=== PATIENT | female | born 1970 | race Caucasian/White ===

== ENCOUNTER 2023-06-30 06:37 | Emergency (ER) | payer OTHER, SELFPAY ==
--- NOTE | ~2023-06-30 | XR_ITS ---
Clinical Indication: Shortness of breath PA and lateral of the chest: Comparison: 02/21/2016 Findings: The lungs are clear, without evidence of focal consolidation or pleural effusion. Cardiome diastinal silhouette is within normal limits. Bones and soft tissues are unremarkable. Impression: Normal chest. Reviewed, dictated and finalized at location . Impression: Normal chest.
[2023-06-30 06:37] VITALS: BP 142/99; TEMP 36.3
--- NOTE | 2023-06-30 06:38 | ECG_ITS ---
Measurements Intervals [place] Rate: 71 P: 47 WA: 124 QRS: 66 QRSD: 74 T: 56 QT: 386 QTc: 422 Interpretive Statements SINUS RHYTHM BASELINE ARTIFACT- I, II, III, AVR, AVL, AVF NORMAL ECG NO PREVIOUS ECG AVAILABLE FOR COMPARISON Electronically Signed On 06-30-2023 7:33:37 CDT by Álvaro Fuentes D.O.
[2023-06-30 06:49] VITALS: PULSE 111
[2023-06-30 06:50] VITALS: O2SAT 98
[2023-06-30 07:06] LABS: Basophils Absolute Auto 0.1 K/mm3 (0.0-0.1); Basophils Percent Auto 0.9 % (0.2-1.2); Eosinophils Absolute Auto 0.2 K/mm3 (0-0.3); Eosinophils Percent Auto 2.3 % (0-4.4); Hemoglobin 13.4 g/dL (12.0-15.0); Immature Granulocyte Absolute 0.03 K/mm3 (0.00-0.031); Immature Granulocyte Percent A 0.4 % (0-0.5); Lymphocytes Absolute Auto 2.13 K/mm3 (0.9-3.2); Lymphocytes Percent Auto 26.7 % (18.3-44.2); Mean Corpuscular HGB Conc 33.5 g/dl (32-36); Mean Corpuscular Hemoglobin 32.8 pg (26-34); Mean Corpuscular Volume 97.8 fl (80-100); Mean Platelet Volume 9.3 fl (7.4-10.4); Monocytes Absolute Auto 0.5 K/mm3 (0.1-0.6); Monocytes Percent Auto 5.6 % (2.6-8.5); Neutrophils Absolute Auto 5.1 K/mm3 (1.3-6.7); Neutrophils Percent Auto 64.1 % (45.5-73.1); Platelet Count Result 261 k/mm3 (150-375); Red Blood Count 4.09 M/mm3 (4.2-5.4); Red Cell Distribution Width 12.3 % (11.5-14.5)
--- NOTE | 2023-06-30 07:10 | ED.SOB ---
HPI - SOB/Dyspnea General Chief Complaint: Shortness of Breath/Dyspnea Stated Complaint: SOB Time Seen by Provider: 06/30/23 07:00 History of Present Illness HPI Narrative: Patient is a 52-year-old female who presents ER with shortness of breath. Patient reports over the last week she has had sinus congestion with sore throat and productive cough. She has been experiencing postnasal drip. She has had sinus pressure. Her PCP put her on azithromycin for 5 days and she has completed the antibiotic course. No fevers or chills or sweats. No chest pain or chest pressure. [place] like she was having an asthma attack earlier and had to use her albuterol. Cough is worse in the morning due to postnasal drip. Related Data Allergies Allergy/AdvReac Type Severity Reaction Status Date / Time No Known Allergies Allergy Verified 02/21/16 14:56 Review of Systems Review of Systems: All systems reviewed & are unremarkable except as noted in HPI and below Constitutional: Constitutional: Denies chills, Denies fatigue and Denies fever(s) ENT: Denies nasal congestion and Denies sore throat Cardiovascular: Cardiovascular: Denies chest pain, Denies rapid heart rate and Denies radiating jaw, neck or arm pain Respiratory: Respiratory: Reports cough, Reports dyspnea and Reports wheezing Gastrointestinal: Gastrointestinal: Denies abdominal pain, Denies nausea and Denies vomiting Musculoskeletal: Musculoskeletal: Reports no additional musculoskeletal complaints PMFSH Past Medical History Medical History (Updated 06/30/23 @ 08:33 by Armando Perez MD) COPD (chronic obstructive pulmonary disease) Surgical History Surgical History (Updated 06/30/23 @ 07:24 by Armando Perez MD) History of hysterectomy Exam Narrative: GENERAL: Well-appearing, well-nourished, and in no acute distress. HEAD: Normocephalic, atraumatic.. ENT: Mucous membranes moist. CHEST: Clear to auscultation. No respiratory distress. HEART: Regular rate and rhythm. Normal peripheral pulses. ABDOMEN: Soft, nontender, nondistended. EXTREMITIES: Normal range of motion. No edema. SKIN: Warm, dry, no rash. NEURO: Alert and oriented x3. PSYCH: Normal mood and affect. Course Course Emergency Course: Patient resting comfortably. Received nebulizer treatment. Breathing improved. No leukocytosis, normal H&H, normal CMP. Negative flu/RSV/COVID. Chest x-ray without pneumonia. Discharge home with prednisone. Recommend nasal steroid and [id number] decongestants. Vital Signs Vital signs: Vital Signs Temperature 97.4 F L 06/30/23 06:37 Blood Pressure 142/99 H 06/30/23 06:37 Oxygen Delivery Room Air 06/30/23 06:37 Temperature 97.4 F L 06/30/23 06:37 Pulse Rate 58 L 06/30/23 08:24 Respiratory Rate 18 06/30/23 08:24 Blood Pressure 142/99 H 06/30/23 06:37 Pulse Oximetry 98 06/30/23 06:50 Oxygen Delivery Room Air 06/30/23 06:50 MDM - SOB/Dyspnea Lab Data 06/30/23 06:58 06/30/23 06:58 Labs: Lab Results 06/30/23 Range/Units 06:58 WBC 8.0 (4.5-10.0) K/mm3 RBC 4.09 L (4.2-5.4) M/mm3 Hgb 13.4 (12.0-15.0) g/dL Hct 40.0 (37.0-47.0) % MCV 97.8 (80-100) fl MCH 32.8 (26-34) pg MCHC 33.5 (32-36) g/dl RDW 12.3 (11.5-14.5) % Plt Count 261 (150-375) k/mm3 MPV 9.3 (7.4-10.4) fl Immature Gran % (Auto) 0.4 (0-0.5) % Neut % (Auto) 64.1 (45.5-73.1) % Lymph % (Auto) 26.7 (18.3-44.2) % [place] % (Auto) 5.6 (2.6-8.5) % Eos % (Auto) 2.3 (0-4.4) % Baso % (Auto) 0.9 (0.2-1.2) % Lymph # (Auto) 2.13 (0.9-3.2) K/mm3 [place] # (Auto) 0.5 (0.1-0.6) K/mm3 Eos # (Auto) 0.2 (0-0.3) K/mm3 Baso # (Auto) 0.1 (0.0-0.1) K/mm3 Abs Immat Gran (auto) 0.03 (0.00-0.031) K/mm3 Absolute Neuts (auto) 5.1 (1.3-6.7) K/mm3 Absolute Nucleated RBC 0.0 (0.0-0.012) K/mm3 Nucleated RBC % 0.0 (0.0-0.2) % Sodium 138 (137-145) mmol/L Potassium 4.9 (3.4-5
[2023-06-30 07:18] LABS: Alanine Aminotransferase 14 U/L (6-35); Albumin Level 4.6 g/dL (3.5-5.1); Alkaline Phosphatase 82 U/L (38-126); Anion Gap 8 mmol/L (8-16); Aspartate Amino Transferase 24 U/L (14-36); Bilirubin,Total 0.5 mg/dL (0.2-1.3); Blood Urea Nitrogen 11 mg/dL (7-17); Calcium 9.6 mg/dL (8.4-10.2); Carbon Dioxide 27 mmol/L (22-30); Chloride 103 mmol/L (98-107); Estimated CRCL calculation 88 ml/min; Estimated Glomerular Filt Rate > 60; Glucose 92 mg/dL (65-110); Potassium 4.9 mmol/L (3.4-5.0); Sodium 138 mmol/L (137-145)
[2023-06-30 07:35] VITALS: BP 127/82; PULSE 71; RESP 16; O2SAT 96
[2023-06-30 07:42] LABS: Influenza A QL RT-PCR Negative (Negative); Influenza B QL RT-PCR Negative (Negative); RSV RNA, RT-PCR Negative (Negative); SARS-CoV-2 RNA PCR Negative (Negative)
[2023-06-30 08:15] VITALS: BP 131/81; PULSE 60; PULSE 72; RESP 16; RESP 18; O2SAT 96
[2023-06-30] MEDS: IPRATROPIUM BR 0.02% INH SOLN 0.5 MG/2.5 ML VIAL INHALATION (08:18)
[2023-06-30] MEDS: ALBUTEROL SULFATE NEB 2.5 MG/3 ML INH INHALATION (08:18)
[2023-06-30 08:24] VITALS: PULSE 58; RESP 18
== END 2023-06-30 08:54 | disposition home or self-care (01) ==
PROVIDERS: Emergency Medicine; Emergency Provider Emergency Medicine
DX: B34.9 Viral infection, unspecified (principal); Z20.822 Contact with and (suspected) exposure to COVID-19; J44.9 Chronic obstructive pulmonary disease, unspecified; Z90.710 Acquired absence of both cervix and uterus
CPT/HCPCS: 36415; 71046; 80053; 85025; 87637; 93005; 94640; 99284